=== PATIENT | female | born 1970 | race Caucasian/White ===

== ENCOUNTER 2017-06-13 17:32 | Emergency (ER) | payer BC ==
--- NOTE | 2017-06-13 19:18 | UC ---
Throat Pain/Nasal Gus HPI - HPI Summary HPI Summary: 46 YEAR OLD FEMALE PRESENTS WITH COUGH, FEVER BLISTER ON LOWER LIP AND SORE THROAT. - History of Current Complaint Chief Complaint: UCRespiratory Stated Complaint: ST, COUGH Time Seen by Provider: 06/13/17 18:55 Hx Obtained From: Patient Hx Last Menstrual Period: 06/05/17 Onset/Duration: Sudden Onset Severity: Moderate Pain Scale Used: 0-10 Numeric - 5 - Allergies/Home Medications Allergies/Adverse Reactions: Allergies Allergy/AdvReac Type Severity Reaction Status Date / Time Morphine Allergy Vomiting Verified 06/13/17 18:59 Home Medications: Home Medications Levothyroxine TAB* [Synthroid TAB*] 175 mcg PO DAILY 06/13/17 [History Confirmed 06/13/17] PMH/Surg Hx/FS Hx/Imm Hx Previously Healthy: Yes - Surgical History Surgical History: Yes Surgery Procedure, Year, and Place: csection x 2. T &A - Social History Alcohol Use: Weekly Substance Use Type: None Smoking Status (MU): Never Smoked Tobacco Review of Systems Constitutional: Fever, Chills, Fatigue Skin: Negative Eyes: Negative ENT: Sore Throat Respiratory: Cough Cardiovascular: Negative Gastrointestinal: Negative Genitourinary: Negative Motor: Negative Neurovascular: Negative Musculoskeletal: Negative Neurological: Negative Psychological: Negative All Other Systems Reviewed And Are Negative: Yes Physical Exam Triage Information Reviewed: Yes Vital Signs: Initial Vital Signs Temp 36.9 C 06/13/17 18:54 Pulse 68 06/13/17 18:54 Resp 18 06/13/17 18:54 BP 137/84 06/13/17 18:54 Pulse Ox 100 06/13/17 18:54 Vital Signs Reviewed: Yes Eye Exam: Normal ENT: Positive: Pharyngeal erythema, Nasal congestion, Nasal drainage, Sinus tenderness Dental Exam: Normal Neck exam: Normal Neck: Positive: 1 Respiratory Exam: Normal Cardiovascular Exam: Normal Abdominal Exam: Normal Musculoskeletal Exam: Normal Neurological Exam: Normal Psychological Exam: Normal Skin Exam: Normal Throat Pain/Nasal Course/Dx - Differential Dx/Diagnosis Provider Diagnoses: BRONCHITIS. SINUS CONGESTION. SINUS TENDERNESS Discharge - Discharge Plan Condition: Stable Disposition: HOME Prescriptions: Albuterol HFA INHALER* [Ventolin HFA Inhaler*] 1 puff INH Q6H PRN #1 mdi PRN Reason: Wheezing Azithromyxin APURVA (NF) [Z-Apurva (Zithromax) 250 mg tabs #6] 2 tab PO .TODAY, THEN 1 DAILY #6 tab Methylprednisolone [Medrol Dosepak 4 MG*] 4 mg PO .SEE APURVA INSTRUCTION #21 tab Promethazine-Dm [Promethazine/Dextromethor 6.25-15 mg/5Ml] 1 teasp PO BEDTIME PRN #120 ml PRN Reason: Cough ValACYclovir (*) [Valtrex 1 GM(*)] 2 gm PO BID #4 tab Patient Education Materials: Bronchospasm (ED), Blister (ED) Referrals: Ann-Marie Mahan MD [Primary Care Provider] -
== END 2017-06-13 19:37 | disposition home or self-care (01) ==
LOC: UCCORT 17:32
DX: J40 Bronchitis, not specified as acute or chronic (principal); R09.81 Nasal congestion; Z88.5 Allergy status to narcotic agent
CPT/HCPCS: 87651; 99202; G0463

== ENCOUNTER 2022-12-12 05:57 | Inpatient (IN) ==
[~2022-12-12 05:57] MED LIST: Naloxone 0.4 mg VIAL 0.4 mg/ml 1 ml VIAL IV PRN; Prochlorperazine 5 mg/ml 2 ml VIAL (10 mg) IV PRN
[2022-12-12] MEDS ORDERED: Lactated Ringers 1000 ml BAG 1,000 ML IV SCH (06:00)
[2022-12-12] MEDS ORDERED: Buffered Lidocaine 1% SYRIN 1 ml INTRADERM ONE (06:00)
[2022-12-12] MEDS ORDERED: Scopolamine 1 mg/72hr PATCH ONE (06:18)
[2022-12-12] MEDS ORDERED: Heparin 5000 UNITS/ML 1 mL VIAL ONE (06:18)
[2022-12-12] MEDS ORDERED: ceFAZolin *3* GM in NS PREMIX 3 GM/100 ML BAG IV ONE (06:19)
[2022-12-12 06:54] LABS: Rapid COVID-19 Molecular Undetected (Undetected)
[2022-12-12] MEDS ORDERED: Methylene Blue 0.5 % 50 MG/10 ML AMP IV ONE (06:57)
[2022-12-12] MEDS ORDERED: Bupivacaine 0.25% EPI 200,000 30 ML SDV ONE (06:58)
[2022-12-12] MEDS ORDERED: Propofol 10 MG/ML 20 ML BTL ONE (09:49)
[2022-12-12] MEDS ORDERED: Rocuronium 50 mg VIAL 10 mg/ml 5 ml VIAL (50 mg) ONE (09:50)
[2022-12-12] MEDS ORDERED: Lidocaine 2% PF 5 ML VIAL ONE (09:51)
[2022-12-12] MEDS ORDERED: fentaNYL 100 mcg/2 ml 50 MCG/ML VIAL ONE ×4 (09:51→13:07)
[2022-12-12] MEDS ORDERED: Sugammadex 500 MG/5 ML 5 ml VIAL IV PUSH ONE (11:17)
[2022-12-12] MEDS ORDERED: Dexamethasone IV 4 MG/ML VIAL 1 ml VIAL ONE (11:21)
[2022-12-12] MEDS ORDERED: Ondansetron 4 mg VIAL 2 MG/ML 2 ml VIAL ONE (11:55)
[2022-12-12] MEDS ORDERED: Labetalol IV 5 MG/ML 20 ml VIAL ONE (12:10)
[2022-12-12] MEDS ORDERED: HYDROcodone/ACET. 7.5/325 LIQ 15 ML UDC PO PRN (12:31)
[2022-12-12] MEDS ORDERED: Ondansetron 4 mg VIAL 2 MG/ML 2 ml VIAL IV PRN (12:31)
[2022-12-12] MEDS: fentaNYL 100 mcg/2 ml 50 MCG/ML VIAL IV PRN ×3 (12:44→13:10)
[2022-12-12] MEDS: Lactated Ringers 1000 ml BAG 1,000 ML IV SCH ×2 (14:17→22:13)
[2022-12-12] MEDS: HYDROmorphone 0.5 MG/0.5 ML SYRINGE IV SLOW PU PRN ×2 (17:48→22:45)
[2022-12-12] MEDS: Heparin 5000 UNITS/ML 1 mL VIAL SUBCUT SCH (22:40)
[2022-12-13] MEDS: Lactated Ringers 1000 ml BAG 1,000 ML IV SCH ×2 (04:59→11:45)
[2022-12-13] MEDS: Heparin 5000 UNITS/ML 1 mL VIAL SUBCUT SCH ×2 (05:20→14:26)
[2022-12-13] MEDS: HYDROmorphone 0.5 MG/0.5 ML SYRINGE IV SLOW PU PRN (05:20)
[2022-12-13 11:43] VITALS: BP 143/73
[2022-12-13] MEDS ORDERED: D5W 1/2 NS KCl 20 meq 1000 ml 1,000 ML IV SCH (13:00)
== END 2022-12-13 14:45 | disposition home or self-care (01) | DRG 403 ==
LOC: AA 05:57 → SSU 12:31
PROVIDERS: ADMIT Surgery; ATTEND Surgery